=== PATIENT | female | born 1960 | race Caucasian/White ===

== ENCOUNTER 2017-02-12 08:23 | Day surgery (SDC) | payer MEDICAID ==
[2017-02-12] MEDS ORDERED: Propofol 200 MG/20 ML SDV ONE ×2 (08:37→10:20)
[2017-02-12] MEDS ORDERED: fentaNYL 100 MCG/2 ML SDV ONE (08:37)
[2017-02-12] MEDS ORDERED: Midazolam 1 MG/ML 2 ML SDV ONE (08:37)
[2017-02-12] MEDS ORDERED: Sodium Chloride 0.9% 1,000 ML IV SCH (09:00)
[2017-02-12 11:38] VITALS: BP 137/69
--- NOTE | 2017-02-12 13:37 | OR ---
DATE OF PROCEDURE: 02/12/2017 PROCEDURE: 1. Esophagogastroduodenoscopy. 2. Colonoscopy. FINDINGS: 1. Inflammation of the duodenum consistent with duodenitis. 2. Inflammation of the gastric cardia consistent with gastritis. 3. GE junction inflammation consistent with reflux disease. 4. Proximal esophagus patulous areas (biopsied using cold biopsy forceps). 5. Ascending colon polyp, 5 mm, completely removed with cold biopsy forceps. COMPLICATIONS: None. GUNSTOCK SPRAY UNIT FEEDER: None. ANESTHESIA: MAC. PREOPERATIVE DIAGNOSIS: Change in bowel habits, epigastric pain. POSTOPERATIVE DIAGNOSIS: Change in bowel habits, epigastric pain. RISKS: Risks, benefits, alternatives, limitations including, but not limited to infection, bleeding, and perforation were explained to the patient, who wished to proceed. PROCEDURE IN DETAIL: The patient was placed in the left lateral decubitus position. The EGD scope was introduced and advanced atraumatically to the second part of the duodenum. In the duodenum, but not in the bulb, there was inflammation consistent with reflux disease. This was biopsied multiple times using cold biopsy forceps. There was no duodenal or gastric ulcers. In the gastric cardia, there was inflammation consistent with gastritis. This was also biopsied multiple times using cold biopsy forceps. At the GE junction, there was inflammation consistent with reflux disease, which was biopsied multiple times using cold biopsy forceps in all 4 quadrants. In the proximal esophagus at approximately 20 cm, there were 2 patulous areas, probably consistent with reflux disease; however, these were biopsied using cold biopsy forceps. The EGD was occluded. A colonoscopy was then initiated. Next, a digital rectal exam was performed without abnormality. The scope was introduced and advanced atraumatically to the ileocecal valve. A photo was taken. The ileum was also cannulized. There was no inflammation of the distal ileum. The scope was brought back through the ascending, transverse, descending colon, and retroflexed. No diverticulosis. No masses. No inflammation whatsoever. The small 5 mm polyp was identified and completely removed. No abnormalities on retroflexion. The patient tolerated the procedure well. Huang Short MD /[id number]
== END 2017-02-12 12:20 | disposition home or self-care (01) ==
LOC: JP.SDS 08:23
PROVIDERS: ATTEND Surgery
DX: K29.50 Unspecified chronic gastritis without bleeding (principal); K63.5 Polyp of colon; K20.9 Esophagitis, unspecified; J44.9 Chronic obstructive pulmonary disease, unspecified; I10 Essential (primary) hypertension; F41.9 Anxiety disorder, unspecified; F32.9 Major depressive disorder, single episode, unspecified; I25.2 Old myocardial infarction; Z88.2 Allergy status to sulfonamides; Z88.8 Allergy status to other drugs, medicaments and biological substances
CPT/HCPCS: 43239; 45380; 88305; J2250; J2704; J3010; J7040

== ENCOUNTER 2020-04-30 07:56 | Day surgery (SDC) | payer MEDICAID ==
[~2020-04-30 07:56] MED LIST: Bupivacaine 0.5% 50 ML MDV ONE; Dexamethasone 4 MG/ML SDV ONE; Glycopyrrolate 0.2 MG/ML 5 ML MDV ONE; Lidocaine 1% with EPINEPHrine 1:100,000 50 ML MDV ONE; Neostigmine Methylsulfate 1 MG/ML 5 ML Syringe ONE; Ondansetron 4 MG/2 ML SDV ONE; Propofol 200 MG/20 ML SDV ONE; Rocuronium 50 MG/5 ML Vial ONE; Succinylcholine 200 MG/10 ML MDV ONE; fentaNYL 250 MCG/5 ML SDV ONE
[2020-04-30] MEDS ORDERED: Sodium Chloride 0.9% 1,000 ML IV SCH (08:45)
[2020-04-30] MEDS ORDERED: metroNIDAZOLE/Normal Saline 500 MG in Premix Bag 1 BAG IV ONE (09:30)
[2020-04-30] MEDS: ceFAZolin 2 GM in Premix Bag 1 BAG IV ONE ×2 (09:34→09:36)
[2020-04-30] MEDS ORDERED: Benzocaine/Cetylpyridinium/Menthol Lozenge MUCMEM PRN (09:51)
[2020-04-30] MEDS ORDERED: hydrOXYzine HCL 100 MG/2 ML SDV IM PRN (09:51)
[2020-04-30] MEDS ORDERED: Zolpidem 5 MG Tab PO PRN (09:51)
[2020-04-30] MEDS ORDERED: Docusate Sodium 100 MG Cap PO PRN (09:51)
[2020-04-30] MEDS ORDERED: fentaNYL 100 MCG/2 ML SDV ONE (10:33)
[2020-04-30] MEDS ORDERED: Lactated Ringers 1,000 ML ONE (10:49)
[2020-04-30] MEDS ORDERED: Sugammadex Sodium 200 MG/2 ML VIAL ONE (10:59)
[2020-04-30] MEDS ORDERED: fentaNYL 100 MCG/2 ML SDV IVPUSH ONE (11:09)
--- NOTE | 2020-04-30 14:05 | OR ---
DATE OF PROCEDURE: 04/30/2020 SURGEON: Huang Short MD PROCEDURE: 1. Transversus abdominis plane blocks, bilaterally. 2. Bilateral rectus sheath blocks. COMPLICATIONS: None. ASSISTANT MANAGER BILINGUAL: None. RISKS: Risks, benefits, alternatives, and limitations including, but not limited to, infection, bleeding, injury to abdominal structures were explained to the patient and she wished to proceed. PROCEDURE IN DETAIL: The patient was placed in supine position. The left transversus abdominis plane was identified under 13-megahertz ultrasound guidance. 20% solution was injected in this. This was then repeated on the right side in the same manner, same fashion, same technique, and in the same sequence. Bilateral rectus sheaths were then injected also under ultrasound guidance using 20% of the total allotted solution. None of the solution nor was the needle advanced blindly nor into the abdomen. The patient tolerated the procedure well. Huang Short MD /[id number]
[2020-04-30] MEDS: Acetaminophen/HYDROcodone 325-5 MG Tab PO PRN ×2 (14:28→18:23)
--- NOTE | 2020-04-30 15:25 | OR ---
DATE OF PROCEDURE: 04/30/2020 SURGEON: Huang Short MD PROCEDURES: 1. Incarcerated laparoscopic ventral hernia repair. 2. Removal of falciform ligament. COMPLICATION: None. CREDIT ADMINISTRATION OFFICER: None. ANESTHETIC: General/local. RISKS: Risks, benefits, alternatives, and limitations including but not limited to infection, bleeding, and perforation of abdominal structures, false positives and false negatives, and other risks not listed here were explained to the patient, who wished to proceed. PROCEDURE IN DETAIL: The patient was placed in supine position and 15 cm inferior and 5 cm to the left of the falciform ligament, a transverse incision was made approximately 1 cm in size. A Veress needle was used to enter the abdomen without abnormality. A drop test was performed without abnormality. This was followed by two 5 mm trocars. Under direct visualization, the incarcerated hernia was noted. This was noted to be incarcerated with omentum. This was reduced without difficulty. Due to its anatomical location, which was approximately 1 cm left of falciform ligament, the falciform ligament had to be removed. This was removed using Harmonic Scalpel. After removal, the pressure was dropped. No abnormalities were noted after removal. The hernia was noted to be approximately 1.5 cm in size. A 5 cm piece of mesh was then introduced. This was then tacked into place at multiple locations. The balloon device was removed. The air was removed. No abnormal bleeding was noted. Irrigation was performed. The wounds were closed with 3-0 Vicryl and 4-0 Vicryl in interrupted running fashion. Dermabond was applied. The patient tolerated the procedure well. Huang Short MD /[id number]
[2020-04-30 17:56] VITALS: BP 103/57; PULSE 71
== END 2020-04-30 19:05 | disposition home or self-care (01) ==
LOC: JP.SDS 07:56 → JP.MS 09:51 → JP.SDS 19:05
PROVIDERS: ATTEND Surgery
DX: K43.6 Other and unspecified ventral hernia with obstruction, without gangrene (principal); E78.00 Pure hypercholesterolemia, unspecified; I10 Essential (primary) hypertension; F17.210 Nicotine dependence, cigarettes, uncomplicated; J44.9 Chronic obstructive pulmonary disease, unspecified; Z90.49 Acquired absence of other specified parts of digestive tract; Z98.890 Other specified postprocedural states
CPT/HCPCS: 88302; A9270-GY; C1713; C1781; J0171; J0330; J0690; J1100; J2405; J2704; J2710; J2795; J3010; J3410; J3490; J7030; J7120

== ENCOUNTER 2020-07-09 06:29 | Day surgery (SDC) | payer MEDICAID ==
[2020-07-09] MEDS ORDERED: fentaNYL 100 MCG/2 ML SDV ONE (07:09)
[2020-07-09] MEDS ORDERED: Propofol 200 MG/20 ML SDV ONE ×2 (07:09→08:31)
[2020-07-09] MEDS ORDERED: Midazolam 1 MG/ML 2 ML SDV ONE (07:09)
[2020-07-09] MEDS ORDERED: Sodium Chloride 0.9% 1,000 ML IV SCH (07:30)
[2020-07-09 09:52] VITALS: BP 121/61; PULSE 59
--- NOTE | 2020-07-09 11:13 | OR ---
DATE OF PROCEDURE: 07/09/2020 SURGEON: Huang Short MD PROCEDURES: 1. Esophagogastroduodenoscopy. 2. Colonoscopy. FINDINGS: 1. Small hiatal hernia. 2. Transverse colon polyp, approximately 8 mm, completely removed using hot snare wire device. 3. Descending colon polyp, approximately 8 mm, completely removed using hot snare wire device. COMPLICATIONS: None. MASTER SONAR TECHNICIAN: None. ANESTHESIA: MAC. PREOPERATIVE DIAGNOSIS: Epigastric pain/screening colonoscopy. POSTOPERATIVE DIAGNOSIS: Epigastric pain/screening colonoscopy. RISKS: Risks, benefits, alternatives, and limitations including, but not limited to infection, bleeding, perforation, false positives and false negatives were explained to the patient and she wished to proceed. PROCEDURE IN DETAIL: The patient was placed in left lateral decubitus position. EGD scope was introduced and advanced atraumatically to second part of the duodenum. No evidence of duodenitis or ulceration. No old or new blood. Within the stomach itself, there was no evidence of gastritis. No abnormalities on retroflexion. The patient has a small hiatal hernia. GE junction showed mild inflammation concerning for reflux disease. This was biopsied multiple times using cold biopsy forceps. The remainder of esophagus was inspected without abnormality. Of note, the GE junction was biopsied in all 4 quadrants. Colonoscopy was performed next. The patient was placed in a left lateral decubitus position. The digital rectal exam was performed without abnormality. Scope was introduced and advanced atraumatically to the ileocecal valve. A photo was taken of this. Scope was brought back to the ascending, transverse, descending colon, and retroflexed. The aforementioned polyps were identified and completely removed. No evidence of old blood. The patient had diverticulosis described as mild without evidence of diverticulitis or bleeding. No abnormalities on retroflexion. The patient tolerated the procedure well. Huang Shotr MD /[id number]
== END 2020-07-09 10:10 | disposition home or self-care (01) ==
LOC: JP.SDS 06:29
PROVIDERS: ATTEND Surgery
DX: Z12.11 Encounter for screening for malignant neoplasm of colon (principal); D12.3 Benign neoplasm of transverse colon; D12.4 Benign neoplasm of descending colon; K22.8 Other specified diseases of esophagus; K31.89 Other diseases of stomach and duodenum; K44.9 Diaphragmatic hernia without obstruction or gangrene; K57.30 Diverticulosis of large intestine without perforation or abscess without bleeding; G47.33 Obstructive sleep apnea (adult) (pediatric); Z86.010 Personal history of colon polyps; Z88.8 Allergy status to other drugs, medicaments and biological substances; Z88.2 Allergy status to sulfonamides
CPT/HCPCS: J2250; J2704; J3010; J7030

== ENCOUNTER 2022-11-30 14:32 | Emergency (ER) | payer MEDICAID ==
[2022-11-30 15:09] VITALS: BP 174/79; PULSE 93
[2022-11-30] MEDS ORDERED: Acetaminophen/HYDROcodone 325-5 MG Tab PO ONE (15:33)
[2022-11-30] MEDS ORDERED: Amoxicillin/Clavulanate K 875-125 MG Tab PO ONE (15:33)
[2022-11-30] MEDS ORDERED: cefTRIAXone 1 GM, Lidocaine 1% 2.1 ML IM ONE ×2 (16:01)
== END 2022-11-30 17:03 | disposition home or self-care (01) ==
LOC: JP.ED 14:32
DX: K04.7 Periapical abscess without sinus (principal); Z88.8 Allergy status to other drugs, medicaments and biological substances; Z88.2 Allergy status to sulfonamides
CPT/HCPCS: 96372; 99282; A9270; J0696

== ENCOUNTER 2023-04-21 17:06 | Emergency (ER) | payer MEDICAID ==
[2023-04-21 18:00] LABS: APPEARANCE,URINE CLEAR (CLEAR); BILIRUBIN,URINE NEGATIVE (NEGATIVE); COLOR,URINE YELLOW (YELLOW); GLUCOSE,URINE NEGATIVE (NEGATIVE); KETONES,URINE NEGATIVE (NEGATIVE); LEUKOCYTE ESTERASE,URINE NEGATIVE (NEGATIVE); NITRITE,URINE NEGATIVE (NEGATIVE); OCCULT BLOOD,URINE TRACE-INTACT (NEGATIVE); PH,URINE 5.5 (5.0-8.0); PROTEIN,URINE NEGATIVE (NEGATIVE); UROBILINOGEN,URINE 0.2 EU/dL (0.2-1.0)
[2023-04-21 18:06] LABS: RBC,URINE 0-5 (0-5); WBC,URINE 0-5 (0-5)
[2023-04-21 18:07] LABS: AMORPHOUS SEDIMENT,URINE NOT SEEN; BACTERIA,URINE RARE; EPITHELIAL CELLS,URINE RARE; MUCUS,URINE RARE
[2023-04-21 18:20] LABS: CORONAVIRUS COVID-19 NAA NEGATIVE (NEGATIVE); INFLUENZA A NAA NEGATIVE (NEGATIVE); INFLUENZA B NAA NEGATIVE (NEGATIVE); RESPIRATORY SYNCYTIAL VIR NAA NEGATIVE (NEGATIVE)
[2023-04-21 19:48] VITALS: BP 166/83; PULSE 73
== END 2023-04-21 19:36 | disposition home or self-care (01) ==
LOC: JP.ED 17:06
DX: R42 Dizziness and giddiness (principal); I10 Essential (primary) hypertension; I25.2 Old myocardial infarction; J45.909 Unspecified asthma, uncomplicated; E78.00 Pure hypercholesterolemia, unspecified; F17.210 Nicotine dependence, cigarettes, uncomplicated; Z79.899 Other long term (current) drug therapy; Z88.8 Allergy status to other drugs, medicaments and biological substances; Z88.2 Allergy status to sulfonamides; Z90.49 Acquired absence of other specified parts of digestive tract
CPT/HCPCS: 0241U; 70450; 81001; 93005; 93010; 99283; 99284

== ENCOUNTER 2023-08-29 11:23 | Emergency (ER) | payer MEDICAID ==
[2023-08-29 11:29] VITALS: BP 170/83; PULSE 96
[2023-08-29] MEDS: Ketorolac 30 MG/ML SDV IM ONE (12:21)
== END 2023-08-29 12:55 | disposition home or self-care (01) ==
LOC: JP.ED 11:23
DX: R51.9 Headache, unspecified (principal); I10 Essential (primary) hypertension; E78.00 Pure hypercholesterolemia, unspecified; Z86.16 Personal history of COVID-19; J44.9 Chronic obstructive pulmonary disease, unspecified; F17.210 Nicotine dependence, cigarettes, uncomplicated; Z88.6 Allergy status to analgesic agent; Z88.2 Allergy status to sulfonamides; Z79.51 Long term (current) use of inhaled steroids; Z79.899 Other long term (current) drug therapy
CPT/HCPCS: 96372; 99283; J1885

== ENCOUNTER 2023-08-31 06:40 | Day surgery (SDC) | payer MEDICAID ==
[2023-08-31] MEDS ORDERED: fentaNYL 50 MCG/ML SDV ONE (07:07)
[2023-08-31] MEDS ORDERED: Propofol 200 MG/20 ML SDV ONE (07:07)
[2023-08-31] MEDS: Lactated Ringers 1,000 ML IV SCH (07:38)
[2023-08-31 09:19] VITALS: BP 148/67; PULSE 63
== END 2023-08-31 09:35 | disposition home or self-care (01) ==
LOC: JP.SDS 06:40
PROVIDERS: ATTEND Family Medicine
DX: Z12.11 Encounter for screening for malignant neoplasm of colon (principal); D12.3 Benign neoplasm of transverse colon; K57.30 Diverticulosis of large intestine without perforation or abscess without bleeding; Z80.0 Family history of malignant neoplasm of digestive organs; I10 Essential (primary) hypertension; J44.9 Chronic obstructive pulmonary disease, unspecified; K21.9 Gastro-esophageal reflux disease without esophagitis; E78.5 Hyperlipidemia, unspecified; F17.200 Nicotine dependence, unspecified, uncomplicated; Z79.899 Other long term (current) drug therapy; Z88.2 Allergy status to sulfonamides; Z88.6 Allergy status to analgesic agent; Z88.8 Allergy status to other drugs, medicaments and biological substances
CPT/HCPCS: 00811; 45380; 88305; J2704; J3010; J7120

== ENCOUNTER 2023-09-04 22:55 | Emergency (ER) | payer MEDICAID ==
[2023-09-04 23:14] VITALS: BP 180/88; PULSE 108
[2023-09-04] MEDS: LORazepam 0.5 MG Tab PO ONE (23:28)
[2023-09-04 23:35] LABS: BASOPHILS ABSOLUTE AUTO 0.03 K/uL (0.00-0.10); BASOPHILS PERCENT AUTO 0.5 % (0.1-1.3); EOSINOPHILS ABSOLUTE AUTO 0.06 K/uL (0.00-0.40); HEMOGLOBIN 15.4 g/dL (11.2-15.5); IMMATURE GRAN PERCENT AUTO 0.2 % (0.0-0.7); LYMPHOCYTES ABSOLUTE AUTO 2.05 K/uL (0.8-3.3); LYMPHOCYTES PERCENT AUTO 35.4 % (11.4-47.7); MEAN CORPUSCULAR HEMOGLOBIN 28.9 pg (31.6-35.5); MEAN CORPUSCULAR HGB CONC 34.2 g/dL (31.6-35.5); MEAN CORPUSCULAR VOLUME 84.6 fL (81.4-99.0); MONOCYTES PERCENT AUTO 6.9 % (3.3-12.6); NEUTROPHILS ABSOLUTE AUTO 3.24 K/uL (1.0-7.6); PLATELET COUNT,PLT 195 K/uL (130-375); RED BLOOD CELL COUNT 5.32 M/uL (3.77-5.24); WHITE BLOOD CELL COUNT,WBC 5.8 K/uL (3.2-11.0)
[2023-09-04 23:36] LABS: IMMATURE GRAN ABSOLUTE AUTO 0.01 K/uL (0.00-0.23)
[2023-09-04 23:56] LABS: A/G RATIO 0.9 (1.2-2.2); ALANINE AMINOTRANSFERASE,ALT 20 U/L (12-78); ALBUMIN 3.4 g/dL (3.4-5.0); ALKALINE PHOSPHATASE 77 U/L (46-116); ASPARTATE AMNIOTRANSFERASE,AST 12 U/L (15-37); BILIRUBIN TOTAL 0.3 mg/dL (0.2-1.0); BLOOD UREA NITROGEN,BUN 8 mg/dL (7-18); CALCIUM 9.2 mg/dL (8.5-10.1); CARBON DIOXIDE,CO2 27 mmol/L (21-32); CHLORIDE,CL 106 mmol/L (100-108); CREATININE 0.9 mg/dL (0.6-1.0); EST CRCL DRUG DOSING (CG) 62.22 mL/min; ESTIMATED GFR 72 mL/min (>60); GLUCOSE RANDOM 164 mg/dL (74-106); POTASSIUM,K 3.5 mmol/L (3.6-5.2); PROTEIN TOTAL,TP 7.3 g/dL (6.4-8.2); SODIUM,NA 143 mmol/L (140-148)
[2023-09-05] LABS: ANION GAP 13.5 mmol/L (5.0-14.0)
[2023-09-05 00:25] LABS: MAGNESIUM 1.8 mg/dL (1.8-2.4); TSH ULTRASENSITIVE 2.051 uIU/mL (0.358-3.740)
[2023-09-05 00:35] LABS: APPEARANCE,URINE CLEAR (CLEAR); BILIRUBIN,URINE NEGATIVE (NEGATIVE); COLOR,URINE YELLOW (YELLOW); GLUCOSE,URINE NEGATIVE (NEGATIVE); KETONES,URINE NEGATIVE (NEGATIVE); LEUKOCYTE ESTERASE,URINE NEGATIVE (NEGATIVE); NITRITE,URINE NEGATIVE (NEGATIVE); OCCULT BLOOD,URINE TRACE-LYSED (NEGATIVE); PROTEIN,URINE NEGATIVE (NEGATIVE); UROBILINOGEN,URINE 0.2 EU/dL (0.2-1.0)
[2023-09-05] MEDS: Sodium Chloride 0.9% 1,000 ML IV SCH (00:45)
[2023-09-05 01:04] LABS: AMORPHOUS SEDIMENT,URINE NOT SEEN; BACTERIA,URINE FEW; EPITHELIAL CELLS,URINE FEW; MUCUS,URINE NOT SEEN; RBC,URINE 0-5 (0-5); WBC,URINE 0-5 (0-5)
== END 2023-09-05 01:46 | disposition home or self-care (01) ==
LOC: JP.ED 22:55
DX: F41.9 Anxiety disorder, unspecified (principal); E86.0 Dehydration; I10 Essential (primary) hypertension; J45.909 Unspecified asthma, uncomplicated; F17.210 Nicotine dependence, cigarettes, uncomplicated; Z88.2 Allergy status to sulfonamides; Z88.8 Allergy status to other drugs, medicaments and biological substances; Z79.899 Other long term (current) drug therapy; Z86.16 Personal history of COVID-19; Z90.49 Acquired absence of other specified parts of digestive tract
CPT/HCPCS: 36415; 80053; 81001; 83735; 84443; 85025; 93005; 93010; 96360; 99283-25; 99284; A9270-GY; J7030

== ENCOUNTER 2023-09-06 14:24 | Emergency (ER) | payer MEDICAID ==
[2023-09-06 15:48] VITALS: BP 170/86; PULSE 87
[2023-09-06 16:12] LABS: BASOPHILS ABSOLUTE AUTO 0.05 K/uL (0.00-0.10); BASOPHILS PERCENT AUTO 0.7 % (0.1-1.3); EOSINOPHILS PERCENT AUTO 0.3 % (0.0-5.4); HEMATOCRIT 46.7 % (34.3-46.0); HEMOGLOBIN 15.7 g/dL (11.2-15.5); IMMATURE GRAN PERCENT AUTO 0.1 % (0.0-0.7); LYMPHOCYTES PERCENT AUTO 30.9 % (11.4-47.7); MEAN CORPUSCULAR HEMOGLOBIN 28.4 pg (31.6-35.5); MEAN CORPUSCULAR HGB CONC 33.6 g/dL (31.6-35.5); MEAN CORPUSCULAR VOLUME 84.4 fL (81.4-99.0); MONOCYTES ABSOLUTE AUTO 0.42 K/uL (0.20-0.90); MONOCYTES PERCENT AUTO 5.9 % (3.3-12.6); NEUTROPHILS ABSOLUTE AUTO 4.41 K/uL (1.0-7.6); NEUTROPHILS PERCENT AUTO 62.1 % (40.0-78.1); PLATELET COUNT,PLT 212 K/uL (130-375); RED BLOOD CELL COUNT 5.53 M/uL (3.77-5.24); WHITE BLOOD CELL COUNT,WBC 7.1 K/uL (3.2-11.0)
[2023-09-06 16:13] LABS: EOSINOPHILS ABSOLUTE AUTO 0.02 K/uL (0.00-0.40); IMMATURE GRAN ABSOLUTE AUTO 0.01 K/uL (0.00-0.23)
[2023-09-06] MEDS: LORazepam 0.5 MG Tab PO ONE (16:26)
[2023-09-06 16:37] LABS: ANION GAP 8.9 mmol/L (5.0-14.0); CALCIUM 9.5 mg/dL (8.5-10.1); CREATININE 0.8 mg/dL (0.6-1.0); EST CRCL DRUG DOSING (CG) 69.99 mL/min; TROPONIN I HIGH SENSITIVITY 5.9 pg/mL (<=60.3)
[2023-09-06 16:43] LABS: APPEARANCE,URINE CLEAR (CLEAR); BILIRUBIN,URINE NEGATIVE (NEGATIVE); COLOR,URINE YELLOW (YELLOW); GLUCOSE,URINE NEGATIVE (NEGATIVE); KETONES,URINE NEGATIVE (NEGATIVE); LEUKOCYTE ESTERASE,URINE TRACE (NEGATIVE); NITRITE,URINE NEGATIVE (NEGATIVE); OCCULT BLOOD,URINE TRACE-INTACT (NEGATIVE); PROTEIN,URINE NEGATIVE (NEGATIVE); UROBILINOGEN,URINE 0.2 EU/dL (0.2-1.0)
[2023-09-06 16:50] LABS: AMORPHOUS SEDIMENT,URINE NOT SEEN; BACTERIA,URINE FEW; EPITHELIAL CELLS,URINE FEW; MUCUS,URINE NOT SEEN; RBC,URINE 0-5 (0-5); WBC,URINE 0-5 (0-5)
== END 2023-09-06 17:22 | disposition home or self-care (01) ==
LOC: JP.ED 14:24
DX: F41.0 Panic disorder [episodic paroxysmal anxiety] (principal); I10 Essential (primary) hypertension; E78.00 Pure hypercholesterolemia, unspecified; J44.9 Chronic obstructive pulmonary disease, unspecified; F17.210 Nicotine dependence, cigarettes, uncomplicated; Z90.49 Acquired absence of other specified parts of digestive tract; Z86.16 Personal history of COVID-19; Z79.899 Other long term (current) drug therapy; Z88.6 Allergy status to analgesic agent; Z88.8 Allergy status to other drugs, medicaments and biological substances; Z88.2 Allergy status to sulfonamides
CPT/HCPCS: 36415; 80048; 81001; 84484; 85025; 93005; 99283; A9270; 99284